=== PATIENT | male | born 1995 | race African-American/Black ===

== ENCOUNTER 2017-01-13 23:40 | Emergency (ER) | payer OTHER ==
[2017-01-13] MEDS ORDERED: Aspirin Low Dose CHEW TAB* 81 MG PO ONE (23:43)
[2017-01-14 00:08] LABS: Hematocrit 42 % (42-52); Hemoglobin 13.9 g/dl (14.0-18.0); Mean Corpuscular HGB Conc 33 g/dl (31-36); Mean Corpuscular Hemoglobin 29 pg (27-31); Mean Corpuscular Volume 88 fL (80-94); Mean Platelet Volume 11 um3 (7.4-10.4); Red Blood Count 4.74 10^6/ul (4.0-5.4); Red Cell Distribution Width 14 % (10.5-15); White Blood Count 7.4 10^3/ul (3.5-10.8)
[2017-01-14 00:17] LABS: Albumin 4.5 g/dL (3.2-5.2); BUN/Creatinine Ratio 11.8 (8-20); Calcium 9.7 mg/dL (8.6-10.3); EGFR African American 147.8 (>60); EGFR Non-African American 114.9 (>60); Globulin 3.3 g/dL (2-4); Potassium 3.5 mmol/L (3.5-5.0); Total Bilirubin 0.3 mg/dL (0.2-1.0); Total Protein 7.8 g/dL (6.4-8.9)
--- NOTE | 2017-01-14 07:24 | RAD ---
INDICATION: Chest pain and shortness of breath. COMPARISON: There are no prior studies available for comparison. TECHNIQUE: 2 portable views of the chest were obtained. FINDINGS: Cardiac and mediastinal contours appear to be within normal limits. The lungs are clear. No pleural effusion is seen. IMPRESSION: NO EVIDENCE FOR ACUTE DISEASE.
--- NOTE | 2017-01-14 08:43 | ED ---
Jannet Roach Thomas, scribed for Ewelina Austin MD on 01/14/17 at 0246 . HPI Chest Pain - HPI Summary HPI Summary: The pt is a 21 y/o M presenting to the ED c/o intermittent CP that began yesterday at 20:00. The pain is described as pressure in his chest that moves around his chest. The pt rates the pain 4/10. The pain is aggravated by lying down and alleviated by nothing. The pain is not reproducible. The patient has not treated this pain with anything [employer]. Pt additionally c/o SOB (earlier in the day but none in the ED). Pt denies sore throat, dysphagia, fever, ear pain, sinus congestion, and throat swelling. PMHx: previously healthy. PSHx: none. SHx : no smoking, rare alcohol use, no illicit drug use. FHx: positive for ulcers, negative for CAD. He notes a somewhat similar episode of chest pain a few months ago. - History of Current Complaint Chief Complaint: EDChestPainROMI Time Seen by Provider: 01/14/17 00:22 Hx Obtained From: Patient Onset/Duration: Started Hours Ago, Still Present Time of Onset: 20:00 - 01/13/17 Timing: Intermittent, Lasting Days Initial Severity: Moderate Current Severity: Moderate Pain Intensity: 4 Pain Scale Used: 0-10 Numeric Chest Pain Location: Diffuse, Upper Sternal Chest Pain Radiates: No Character: Pressure/Squeezing Aggravating Factor(s): Position - lying down Alleviating Factor(s): Nothing Associated Signs and Symptoms: Positive: Chest Pain, Shortness of Breath - earlier in the day but none in the ED, Other: - NEG: sore throat, dysphagia, fever, ear pain, and throat swelling. Negative: Nasal Congestion, Sinus Discomfrot Related History: Similar Episode/Dx as: - episode similar to this in the past PMH/Surg Hx/FS Hx/Imm Hx Previously Healthy: No Cardiovascular History: Denies: Hx Myocardial Infarction Respiratory History: Denies: Hx Chronic Obstructive Pulmonary Disease (COPD) - Surgical History Surgery Procedure, Year, and Place: None Infectious Disease History: No Infectious Disease History: Denies: Traveled Outside the [place] in Last 30 Days - Family History Known Family History: Positive: Other - positive for ulcers Negative: Cardiac Disease - Social History Occupation: Student Alcohol Use: Rare Substance Use Type: Reports: None Smoking Status (MU): Never Smoked Tobacco Review of Systems Negative: Fever Negative: Sore Throat, Ear Ache, Other - NEG: dysphagia, sinus congestion, throat swelling Positive: Chest Pain - intermittent, pressure, "moves around chest", 09/01 Positive: Shortness Of Breath - earlier in the day but none in the ED Gastrointestinal: Negative Psychological: Normal All Other Systems Reviewed And Are Negative: Yes Physical Exam Triage Information Reviewed: Yes Vital Signs On Initial Exam: Initial Vitals Temp Pulse Resp BP Pulse Ox 98.4 F 103 20 171/82 100 01/13/17 23:43 01/13/17 23:43 01/13/17 23:43 01/13/17 23:43 01/13/17 23:43 Vital Signs Reviewed: Yes Appearance: Positive: Well-Appearing, Well-Nourished, Pain Distress Skin: Positive: Warm, Skin Color Reflects Adequate Perfusion Head/Face: Positive: Normal Head/Face Inspection Eyes: Positive: Conjunctiva Clear ENT: Positive: Normal ENT inspection Neck: Positive: Supple Respiratory/Lung Sounds: Positive: Clear to Auscultation, Breath Sounds Present , Other - No respiratory distress Cardiovascular: Positive: RRR, Pulses are Symmetrical in both Upper and Lower Extremities, Other - Brisk cap refill. Negative: Murmur Abdomen Description: Positive: Nontender, Soft Bowel Sounds: Positive: Present Musculoskeletal: Positive: Strength/ROM Intact, Other - no calf tenderness, pulses, sensation intact Neurological: Positive: Alert, Oriented to Person Place, Time, Facial Symmetry, Speech Normal, Other - Motor intact Psychiatric: Positive: Normal - Sal Coma Scale Coma Scale Total: 15 Diagnostics - Vital Signs Vital Signs Temp Pulse Resp BP Pulse Ox 01/13/17 23:47 100 01/13/17 23:43 98.4 F 103 20 171/82 100 - Laboratory Lab Results: Lab Results 01/13/17 01/13/17 01/13/17 Range/Units 23:50 23:50 23:50 WBC 7.4 (3.5-10.8) 10^3/ul RBC 4.74 (4.0-5.4) 10^6/ul Hgb 13.9 L (14.0-18.0) g/dl Hct 42 (42-52) % MCV 88 (80-94) fL MCH 29 (27-31) pg MCHC 33 (31-36) g/dl RDW 14 (10.5-15) % Plt Count 132 L (150-450) 10^3/ul MPV 11 H (7.4-10.4) um3 Neut % (Auto) 56.9 (38-83) % Lymph % (Auto) 33.3 (25-47) % [place] % (Auto) 8.6 (1-9) % Eos % (Auto) 0.3 (0-6) % Baso % (Auto) 0.9 (0-2) % Absolute Neuts (auto) 4.2 (1.5-7.7) 10^3/ul Absolute Lymphs (auto) 2.5 (1.0-4.8) 10^3/ul Absolute Monos (auto) 0.6 (0-0.8) 10^3/ul Absolute Eos (auto) 0 (0-0.6) 10^3/ul Absolute Basos (auto) 0.1 (0-0.2) 10^3/ul Absolute Nucleated RBC 0.01 10^3/ul Nucleated RBC % 0.2 Sodium 136 (133-145) mmol/L Potassium 3.5 (3.5-5.0) mmol/L Chloride 102 (101-111) mmol/L Carbon Dioxide 24 (22-32) mmol/L Anion Gap 10 (2-11) mmol/L BUN 10 (6-24) mg/dL Creatinine 0.85 (0.67-1.17) mg/dL Est GFR ( Amer) 147.8 (>60) Est GFR (Non-Af Amer) 114.9 (>60) BUN/Creatinine Ratio 11.8 (8-20) Glucose 149 H (70-100) mg/dL Lactic Acid 1.7 (0.5-2.0) mmol/L Calcium 9.7 (8.6-10.3) mg/dL Total Bilirubin 0.30 (0.2-1.0) mg/dL AST 20 (13-39) U/L ALT 11 (7-52) U/L Alkaline Phosphatase 49 (34-104) U/L Troponin I 0.00 (<0.04) ng/mL Total Protein 7.8 (6.4-8.9) g/dL Albumin 4.5 (3.2-5.2) g/dL Globulin 3.3 (2-4) g/dL Albumin/Globulin Ratio 1.4 (1-3) Result Diagrams: 01/13/17 23:50 01/13/17 23:50 Lab Statement: Any lab studies that have been ordered have been reviewed, and results considered in the medical decision making process. - Radiology CXR Xray Interpretation: No Acute Changes - No evidence for acute disease Radiology Interpretation Completed By: Radiologist - EKG 00:11 Cardiac Rate: NL - 91 BPM EKG Interpretation: Nml AV, IV, QTc. Nonspecific ST changes. Re-Evaluation - Re-Evaluation First Eval Re-Evaluation Time: 08:50 - No chest pain, feels well, ready to be DC'd. Declines trial of anti-GERD meds, will F/U with [facility]. Change: Improved Chest Pain Course/Dx - Course Assessment/Plan: The pt is a 21 y/o M presenting to the ED c/o intermittent CP that began yesterday at 20:00. The pain is described as pressure in his chest that moves around his chest. The pt rates the pain 4/10. The pain is aggravated by lying down and alleviated by nothing. The pain is not reproducible. The patient has not treated this pain with anything [employer]. Pt additionally c/o SOB ( earlier in the day but none in the ED). Pt denies sore throat, dysphagia, fever , ear pain, sinus congestion, and throat swelling. PMHx: previously healthy. PSHx: none. SHx: no smoking, rare alcohol use, no illicit drug use. FHx: positive for ulcers, negative for CAD. He notes a somewhat similar episode of chest pain a few months ago. CXR reveals no evidence for acute disease. [place] reveals Hbg 13.9, Plt count 132, Gluocse 149, Troponin 0.00 x3. Pt will be DC'd to F/u with [facility] - Chest Pain Differential Diagnosis/HQI/PQRI: ACS, Chest Wall, GI Disease, Pulmonary Embolism - Diagnoses Provider Diagnoses: Chest pain Discharge - Discharge Plan Condition: Stable Disposition: HOME Discharge Disposition Comment: Signed out from Dr. Austin to Dr. Shultz at shift change. Patient Education Materials: Chest Pain (ED) Forms: *School Release Referrals: [facility] [Primary Care Provider] - The documentation as recorded by the Jannet lion Thomas accurately reflects the service I personally performed and the decisions made by me, Ewelina Austin MD.
[2017-01-14 09:09] VITALS: BP 136/63
== END 2017-01-14 09:10 | disposition home or self-care (01) ==
LOC: ED 23:40
DX: R07.9 Chest pain, unspecified (principal); R06.02 Shortness of breath
CPT/HCPCS: 36415; 71010; 80053; 83605; 84484; 85025; 93005; 99283; A9270-GY

== ENCOUNTER 2017-01-17 10:38 | Emergency (ER) | payer OTHER ==
--- NOTE | 2017-01-17 14:02 | ED ---
Throat Pain/Nasal Congestion - HPI Summary HPI Summary: 21 male presents with complaints of having throat discomfort and feeling as though there is something in his throat intermittently. States it is also associated with chest discomfort and heaviness. States his symptoms have seemed to improve and were worse last night. This has been going on for the past 4 days intermittently. Seen in ED 4 days ago and had full work up with out findings. Throat pain is is main complaint today. Denies anything making pain better or worse. Has not related it to any foods. Denies eating a lot of spicy acidic foods and alcohol. Denies SOB and difficulty breathing. No difficulty swallowing, cough and fever/chills. States he was seen at [facility] who gave him famotidine prescription. He has only taken it once. Denies allergies and any recent choking. - History of Current Complaint Chief Complaint: EDChestPainROMI Time Seen by Provider: 01/17/17 11:44 Hx Obtained From: Patient Onset/Duration: Sudden Onset, Lasting Hours, Still Present, Resolved Severity: Mild Associated Signs And Symptoms: Positive: FB Sensation - in throat, "discomfort" Cough: None - Allergies/Home Medications Allergies/Adverse Reactions: Allergies Allergy/AdvReac Type Severity Reaction Status Date / Time No Known Allergies Allergy Verified 01/17/17 10:44 PMH/Surg Hx/FS Hx/Imm Hx Endocrine/Hematology History: Denies: Hx Anemia Cardiovascular History: Denies: Hx Myocardial Infarction Respiratory History: Denies: Hx Chronic Obstructive Pulmonary Disease (COPD) - Surgical History Surgery Procedure, Year, and Place: None - Immunization History Immunizations Up to Date: Yes Infectious Disease History: No Infectious Disease History: Denies: Traveled Outside the [place] in Last 30 Days - Family History Known Family History: Positive: Other - positive for ulcers Negative: Cardiac Disease - Social History Alcohol Use: Rare Substance Use Type: Reports: None Smoking Status (MU): Never Smoked Tobacco Review of Systems Constitutional: Negative Positive: Sore Throat - throat pain, discomfort Positive: Chest Pain - heaviness "discomfort" Respiratory: Negative Gastrointestinal: Negative Musculoskeletal: Negative Neurological: Negative All Other Systems Reviewed And Are Negative: Yes Physical Exam Triage Information Reviewed: Yes Vital Signs On Initial Exam: Initial Vitals Temp Pulse Resp BP Pulse Ox 99.1 F 87 16 156/61 99 01/17/17 10:45 01/17/17 10:45 01/17/17 10:45 01/17/17 10:45 01/17/17 10:45 Vital Signs Reviewed: Yes Appearance: Positive: Well-Appearing, No Pain Distress, Well-Nourished Skin: Positive: Warm, Skin Color Reflects Adequate Perfusion. Negative: Cold, Numb, Cyanosis @, Pale, Erythema @ Head/Face: Positive: Normal Head/Face Inspection Eyes: Positive: Conjunctiva Clear ENT: Positive: Hearing grossly normal Neck: Positive: Supple, Nontender Respiratory/Lung Sounds: Positive: Clear to Auscultation, Breath Sounds Present. Negative: Decreased Breath Sounds, Rales, Rhonchi, Stridor, Wheezes Cardiovascular: Positive: Normal, RRR, Pulses are Symmetrical in both Upper and Lower Extremities - brisk cap refill. Negative: Murmur, Rub, Leg Edema Left, Leg Edema Right Abdomen Description: Positive: Nontender, No Organomegaly, Soft Bowel Sounds: Positive: Present Musculoskeletal: Positive: Normal, Strength/ROM Intact Neurological: Positive: Normal, Sensory/Motor Intact, Alert, Oriented to Person Place, Time Psychiatric: Positive: Anxious - [place] Coma Scale Best Eye Response: 4 - Spontaneous Best Motor Response: 6 - Obeys Commands Best Verbal Response: 5 - Oriented Coma Scale Total: 15 Diagnostics - Vital Signs Vital Signs Temp Pulse Resp BP Pulse Ox 01/17/17 11:32 99.1 F 87 16 152/62 99 01/17/17 10:45 99.1 F 87 16 156/61 99 - Laboratory Lab Statement: Any lab studies that have been ordered have been reviewed, and results considered in the medical decision making process. - EKG EKG Cardiac Rate: NL EKG Rhythm: Sinus Rhythm ST Segment: Normal Ectopy: None EKG Interpretation: NSR EKG Comparison: No Significant Change EENT Course/Dx - Course Course Of Treatment: EKG obtained and NSR. no STEMI. patient had full cardiac work up 4 days ago without findings. Patient denies current chest pain. told to continue taking prescribed medication and give it a couple of doses as he has only taken one. also take tums. stay away from acidic and spicy foods. Stay away from NSAIDs and alcohol. Patient just started school at [employer] could be experiencing stress induced GERD versus anxiety. Will trial GERD medication. Did not want GI cocktail while in ED, refused. Follow up [employer]. Aware of worsening signs and symptoms to watch out for. Return if occur.No concern for emergent cardiopulmonary etiology at this time therefore no further work up obtained at this time. symptoms were better while in ED. - Differential Diagnoses Differential Diagnoses: Tonsilitis, URI/Bronchitis, Other - FB, dysphagia, GERD - Diagnoses Provider Diagnoses: GERD (gastroesophageal reflux disease), Pain in throat and chest Discharge - Discharge Plan Condition: Stable Disposition: HOME Patient Education Materials: Gastroesophageal Reflux Disease (ED) [facility] - Additional Instructions: Please follow up with [facility] in the next 3-5 days. Stay away from acidic, spicy foods along with alcohol, NSAIDs and laying down after eating. Drink plenty of fluids and eat slowly. Take prescribed medication twice daily for the next week. Also recommend taking Tums before/after meals. May need further work up if GERD medication does not resolve symptoms. If new symptoms develop or symptoms worsen please seek medical attention promptly as we discussed.
[2017-01-17 14:18] VITALS: BP 148/62
== END 2017-01-17 14:17 | disposition home or self-care (01) ==
LOC: ED 10:38
DX: K21.9 Gastro-esophageal reflux disease without esophagitis (principal); J02.9 Acute pharyngitis, unspecified; R07.9 Chest pain, unspecified
CPT/HCPCS: 93005; 99281